=== PATIENT | male | born 1960 | race Hispanic/Latino ===

== ENCOUNTER 2020-01-13 07:31 | Emergency (ER) | payer OTHER ==
[2020-01-13] MEDS ORDERED: CLONIDINE HCL 0.1 MG TABLET ONE ×2 (07:58→09:10)
[2020-01-13] MEDS ORDERED: ACETAMINOPHEN EXTRA STRENGTH 500 MG TABLET ONE (07:58)
[2020-01-13] MEDS ORDERED: LIDOCAINE 5% TOPICAL PATCH TP ONE (07:58)
[2020-01-13 07:59] LABS: BASOPHILS % (AUTO) 0.2 % (0.0-5.0); EOSINOPHILS % (AUTO) 1.5 % (0.0-8.0); HEMATOCRIT 41.2 % (42-54); MEAN CORPUSCULAR HEMOGLOBIN 29.6 pg (27.0-33.0); MEAN CORPUSCULAR HGB CONC 34.2 g/dL (32.0-36.0); MEAN CORPUSCULAR VOLUME 86.4 fL (79-99); MONOCYTES % (AUTO) 11.5 % (3.0-13.0); NEUTROPHILS % (AUTO) 64.4 % (40.0-77.0); PLATELET COUNT (AUTO) 231 K/uL (130-400); RED BLOOD CELL COUNT(AUTO) 4.77 MIL/uL (4.50-6.20); RED CELL DISTRIBUTION WIDTH 12.9 % (11.0-15.5); WHITE BLOOD COUNT (AUTO) 5.5 K/uL (4.8-10.8)
[2020-01-13 08:19] LABS: ALBUMIN 3.3 g/dL (3.5-5.0); BILIRUBIN,TOTAL 0.8 mg/dL (0.2-1.0); CREATININE 1.1 mg/dL (0.5-1.5); TOTAL PROTEIN, SERUM 6.6 g/dL (6.0-8.3)
[2020-01-13 08:22] LABS: POTASSIUM 2.9 mmol/L (3.5-5.1)
[2020-01-13] MEDS ORDERED: POTASSIUM CHLORIDE 20 MEQ ERTAB PO ONE (08:29)
[2020-01-13] MEDS ORDERED: NITROGLYCERIN 1GM/1 INCH PACKET TD ONE (09:34)
[2020-01-13 09:56] LABS: POTASSIUM 3.6 mmol/L (3.5-5.1)
[2020-01-15] MEDS ORDERED: METF-446 PO (05:45)
== END 2020-01-13 10:51 | disposition home or self-care (01) ==
LOC: EDH 07:31 → EEVIPCON 07:31 → EDH 10:51
DX: S20.212A Contusion of left front wall of thorax, initial encounter (principal); I10 Essential (primary) hypertension; E11.65 Type 2 diabetes mellitus with hyperglycemia; E87.6 Hypokalemia; W18.39XA Other fall on same level, initial encounter; Y93.89 Activity, other specified; Y92.148 Other place in prison as the place of occurrence of the external cause; Y99.8 Other external cause status; Z91.14 Patient's other noncompliance with medication regimen
CPT/HCPCS: 36415; 71046; 80053; 82550; 84132; 84484; 85025; 93005

== ENCOUNTER 2020-01-14 07:07 | Emergency (ER) | payer OTHER ==
[2020-01-14] MEDS ORDERED: NITROGLYCERIN 1GM/1 INCH PACKET TD ONE (07:25)
[2020-01-14 07:47] LABS: BASOPHILS % (AUTO) 0.4 % (0.0-5.0); EOSINOPHILS % (AUTO) 2.8 % (0.0-8.0); HEMATOCRIT 42.7 % (42-54); LYMPHOCYTES % (AUTO) 21.8 % (21.0-51.0); MEAN CORPUSCULAR HEMOGLOBIN 30.3 pg (27.0-33.0); MEAN CORPUSCULAR VOLUME 89.1 fL (79-99); NEUTROPHILS % (AUTO) 63.8 % (40.0-77.0); PLATELET COUNT (AUTO) 230 K/uL (130-400); RED BLOOD CELL COUNT(AUTO) 4.79 MIL/uL (4.50-6.20); RED CELL DISTRIBUTION WIDTH 13.3 % (11.0-15.5); WHITE BLOOD COUNT (AUTO) 4.6 K/uL (4.8-10.8)
[2020-01-14] MEDS ORDERED: CLONIDINE HCL 0.1 MG TABLET ONE (07:49)
[2020-01-14 08:00] LABS: INR 0.92 (0.85-1.15)
[2020-01-14 08:02] LABS: ALBUMIN 3.2 g/dL (3.5-5.0); BILIRUBIN,TOTAL 0.8 mg/dL (0.2-1.0); CREATININE 1.2 mg/dL (0.5-1.5); POTASSIUM 3.6 mmol/L (3.5-5.1); TOTAL PROTEIN, SERUM 6.5 g/dL (6.0-8.3)
[2020-01-14 08:29] LABS: APPEARANCE,URINE Clear (CLEAR); BILIRUBIN,URINE Negative (NEGATIVE); COLOR,URINE Yellow (YELLOW); GLUCOSE, URINE (UA) >=1000 mg/dL (NEGATIVE); KETONES,URINE Negative (NEGATIVE); LEUKOCYTE ESTERASE ,URINE Negative (NEGATIVE); NITRATE,URINE Negative (NEGATIVE); OCCULT BLOOD,URINE Negative (NEGATIVE); PROTEIN,URINE POS 1+ mg/dL (NEGATIVE)
[2020-01-14 08:40] LABS: B-TYPE NATRIURETIC PEPTIDE 156 pg/mL (0-100)
[2020-01-14 08:44] LABS: BACTERIA,URINE Few /HPF (None Seen); RBC,URINE None Seen /HPF (0-1)
[2020-01-14 08:45] LABS: SQUAMOUS EPITHELIAL CELL,UR 0-2 /HPF (0-2)
[2020-01-14] MEDS ORDERED: CLONIDINE 0.1 MG/ 24 HR PATCH TD SCH (10:00)
[2020-01-15] MEDS ORDERED: METF-446 PO ×2 (05:45)
== END 2020-01-14 10:11 | disposition home or self-care (01) ==
LOC: EDH 07:07
DX: I10 Essential (primary) hypertension (principal); E11.65 Type 2 diabetes mellitus with hyperglycemia
CPT/HCPCS: 36415; 71045; 80053; 81001; 82550; 83880; 84484; 85025; 85610; 85730; 93005

== ENCOUNTER 2020-01-14 20:56 | Inpatient (IN) | payer OTHER ==
[~2020-01-14] VITALS: Ht 157.5 cm; Wt 66.2 kg
[2020-01-14] MEDS ORDERED: NITROGLYCERIN 1GM/1 INCH PACKET TD ONE (21:37)
[2020-01-14] MEDS ORDERED: LABETALOL 20 MG/4 ML DISP.SYRIN IV ONE (22:18)
[2020-01-14] MEDS ORDERED: DEXTROSE 50%-WATER 50 ML DISP.SYRIN IV PRN (23:45)
[2020-01-14] MEDS ORDERED: ONDANSETRON HCL 4 MG/2 ML VIAL IVP PRN (23:45)
[2020-01-14] MEDS ORDERED: GLUCAGON 1MG KIT 1 MG ML IM PRN (23:45)
[2020-01-14] MEDS: METOPROLOL TARTRATE 50 MG TAB PO SCH (23:59)
[2020-01-15] MEDS ORDERED: METOPROLOL TARTRATE 50 MG TAB ONE (00:50)
[2020-01-15] MEDS ORDERED: ASPIRIN 81MG TAB.CHEW ONE (01:14)
[2020-01-15] MEDS ORDERED: AMLODIPINE BESYLATE 5 MG TAB ONE (02:25)
[2020-01-15] MEDS ORDERED: ACETAMINOPHEN 325 MG TAB ONE (02:25)
[2020-01-15 05:10] VITALS: BP 179/102; PULSE 69; RESP 18; TEMP 97.9
[2020-01-15] MEDS: INSULIN R PO SS1 SQ SCH ×4 (05:55→21:54)
[2020-01-15] MEDS ORDERED: LOSARTAN 100 MG TABLET ONE (05:56)
[2020-01-15] MEDS: LOSARTAN 100 MG TABLET PO SCH (07:25)
[2020-01-15 08:33] VITALS: BP 191/111; PULSE 78; RESP 20; TEMP 98.8
[2020-01-15] MEDS: METFORMIN HCL 500 MG TABLET PO SCH ×3 (09:51→19:41)
[2020-01-15] MEDS: ASPIRIN 81 MG EC TAB PO SCH (09:52)
[2020-01-15] MEDS: METOPROLOL TARTRATE 50 MG TAB PO SCH ×2 (09:52→21:45)
[2020-01-15] MEDS: AMLODIPINE BESYLATE 5 MG TAB PO SCH (09:53)
--- NOTE | 2020-01-15 11:30 | NUR ---
Dr CHAS ravi new orders given Addendum: 01/15/20 at 9 by ALBARO MAGDALENO RN RN Amended: Links added.
--- NOTE | 2020-01-15 16:00 | NUR ---
RELEASE OF MEDICAL RECORDS signed by louis and sent to [facility] to obtain previous heart cath as requested by Dr DOHERTY Addendum: 01/15/20 at 1918 by ALBARO MAGDALENO RN RN Amended: Links added.
[2020-01-15 17:10] VITALS: BP 180/99; PULSE 103; RESP 16; TEMP 97.7
[2020-01-15 20:13] VITALS: BP 181/107; PULSE 82; RESP 17; TEMP 98
[2020-01-15] MEDS ORDERED: CLONIDINE HCL 0.1 MG TABLET PO SCH (21:00)
[2020-01-15] MEDS: ACETAMINOPHEN 325 MG TAB PO PRN (21:52)
[2020-01-15 23:35] VITALS: BP 157/96; PULSE 66; RESP 17; TEMP 98
[2020-01-16 03:55] VITALS: BP 155/78; PULSE 67; RESP 17; TEMP 97.9
[2020-01-16] MEDS: INSULIN R PO SS1 SQ SCH ×3 (06:58→20:51)
[2020-01-16 08:00] VITALS: BP 158/94; PULSE 70; RESP 20; TEMP 97.6
[2020-01-16] MEDS ORDERED: LABETALOL HCL 100 MG TABLET PO SCH (08:45)
[2020-01-16] MEDS: ASPIRIN 81 MG EC TAB PO SCH (09:14)
[2020-01-16] MEDS: LOSARTAN 100 MG TABLET PO SCH (09:17)
[2020-01-16] MEDS: CLONIDINE HCL 0.1 MG TABLET PO SCH ×2 (09:17→20:22)
[2020-01-16] MEDS: METFORMIN HCL 500 MG TABLET PO SCH ×2 (09:18→16:43)
[2020-01-16] MEDS: AMLODIPINE BESYLATE 5 MG TAB PO SCH (09:18)
[2020-01-16] MEDS: ACETAMINOPHEN 325 MG TAB PO PRN (09:28)
[2020-01-16 11:00] VITALS: BP 140/81; PULSE 70; RESP 19; TEMP 97.7
[2020-01-16 16:00] VITALS: BP 136/80; PULSE 76; RESP 19; TEMP 97.8
--- NOTE | 2020-01-16 17:48 | NUR ---
PATIENT IN HALF-WAY WITH OFFICERS DISPO WILL BE BACK TO FACILITY Addendum: 01/16/20 at 1749 by ANIRUDH CHILDS RN CM Amended: Links added.
[2020-01-16] MEDS: LABETALOL HCL 100 MG TABLET PO SCH (20:12)
[2020-01-16] MEDS: VALACYCLOVIR HCL 500 MG TABLET PO SCH (20:13)
[2020-01-16 21:59] VITALS: BP 141/81; PULSE 71; RESP 20; TEMP 97.8
[2020-01-17 00:53] VITALS: BP 146/80; PULSE 78; RESP 20; TEMP 97.8
[2020-01-17 05:44] VITALS: BP 149/70; PULSE 77; RESP 20; TEMP 98
[2020-01-17] MEDS: INSULIN R PO SS1 SQ SCH ×4 (06:20→20:08)
[2020-01-17 08:54] VITALS: BP 181/95; PULSE 68; RESP 20; TEMP 98.1
[2020-01-17] MEDS ORDERED: POTASSIUM CHLORIDE 20 MEQ ERTAB PO ONE (09:33)
[2020-01-17] MEDS: LABETALOL HCL 100 MG TABLET PO SCH ×2 (09:36→20:03)
[2020-01-17] MEDS: MAGNESIUM 2GM PREMIX 50ML 50 ML IV SCH (09:36)
[2020-01-17] MEDS: AMLODIPINE BESYLATE 5 MG TAB PO SCH (09:36)
[2020-01-17] MEDS: ASPIRIN 81 MG EC TAB PO SCH (09:36)
[2020-01-17] MEDS: METFORMIN HCL 500 MG TABLET PO SCH ×2 (09:37→15:54)
[2020-01-17] MEDS: CLONIDINE HCL 0.1 MG TABLET PO SCH ×2 (09:37→20:04)
[2020-01-17] MEDS: LOSARTAN 100 MG TABLET PO SCH (09:37)
[2020-01-17] MEDS: ACETAMINOPHEN 325 MG TAB PO PRN ×2 (09:38→20:04)
[2020-01-17] MEDS: VALACYCLOVIR HCL 500 MG TABLET PO SCH ×2 (09:38→20:04)
[2020-01-17] MEDS ORDERED: HYDRALAZINE HCL 20 MG/ML VIAL IV PRN (10:00)
[2020-01-17 11:00] VITALS: BP 143/84; PULSE 72; RESP 19; TEMP 97
[2020-01-17 17:09] VITALS: BP 113/70; PULSE 68; RESP 20; TEMP 98.9
[2020-01-17 19:52] VITALS: BP 149/79; PULSE 70; RESP 20; TEMP 97
[2020-01-18 00:07] VITALS: BP 140/77; PULSE 67; RESP 18; TEMP 97.1
[2020-01-18 04:23] VITALS: BP 156/83; PULSE 64; RESP 20; TEMP 97.6
[2020-01-18] MEDS: MAGNESIUM 2GM PREMIX 50ML 50 ML IV SCH (05:33)
[2020-01-18] MEDS: ACETAMINOPHEN 325 MG TAB PO PRN (05:37)
[2020-01-18] MEDS: INSULIN R PO SS1 SQ SCH ×2 (05:38→11:30)
[2020-01-18 08:00] VITALS: BP 176/82; PULSE 61; RESP 20; TEMP 98.6
--- NOTE | 2020-01-18 08:00 | NUR ---
AM SHIFT ASSESSMENT: PT. IN SKILLED NURSING, 2 OFFICERS AT DOOR FOR SECURITY PURPOSES.
[2020-01-18] MEDS ORDERED: POTASSIUM CHLORIDE 20 MEQ ERTAB PO SCH (09:00)
[2020-01-18] MEDS: VALACYCLOVIR HCL 500 MG TABLET PO SCH (09:10)
[2020-01-18] MEDS: LOSARTAN 100 MG TABLET PO SCH (09:10)
[2020-01-18] MEDS: CLONIDINE HCL 0.1 MG TABLET PO SCH (09:10)
[2020-01-18] MEDS: ASPIRIN 81 MG EC TAB PO SCH (09:10)
[2020-01-18] MEDS: METFORMIN HCL 500 MG TABLET PO SCH (09:10)
[2020-01-18] MEDS: LABETALOL HCL 100 MG TABLET PO SCH (09:10)
[2020-01-18] MEDS: AMLODIPINE BESYLATE 5 MG TAB PO SCH (09:11)
[2020-01-18 11:00] VITALS: BP 122/79; PULSE 71; RESP 20; TEMP 97.6
--- NOTE | 2020-01-18 17:35 | NUR ---
DISCHARGED NOW USING TEACH BACK, PAPERS AND RX GIVEN TO OFFICER, WILL BE TAKEN BACK TO [facility] IN [place]. SALINE LOCK REMOVED, SITE W/O REDNESS OR SWELLING. VERBALIZED UNDERSTANDING OF INST. GIVEN AND STRESSED TO PT. IMPORTANCE OF TAKING HIS BLD. PRESSURE MEDICATIONS. BUT STATES HE DOESN'T HAVE MONEY TO BUY THEM.
== END 2020-01-18 18:00 | DRG 305 ==
LOC: EDH 20:56 → EEVIPCON 23:32 → EDHIP 23:32 → 3CH 01-15 04:08
PROVIDERS: ADMIT Internal Medicine Infectious Disease; ATTEND Internal Medicine Infectious Disease
DX: I16.1 Hypertensive emergency (principal); I11.9 Hypertensive heart disease without heart failure; I25.10 Atherosclerotic heart disease of native coronary artery without angina pectoris; E11.9 Type 2 diabetes mellitus without complications; B02.9 Zoster without complications; E87.6 Hypokalemia; E78.5 Hyperlipidemia, unspecified; Z79.899 Other long term (current) drug therapy; Z83.3 Family history of diabetes mellitus; Z87.891 Personal history of nicotine dependence; Z91.19 Patient's noncompliance with other medical treatment and regimen